=== PATIENT | male | born 1950 | race Caucasian/White ===

== ENCOUNTER 2018-05-08 05:25 | Inpatient (IN) ==
[2018-05-08] MEDS ORDERED: TRANEXAMIC ACID 1,000 MG/10 ML VIAL ONE (06:43)
[2018-05-08] MEDS ORDERED: BACITRACIN OINT 0.9 GM PACK TOP ONE (06:43)
[2018-05-08] MEDS ORDERED: ROPIVACAINE 0.5% 30 ML VIAL ONE (07:30)
[2018-05-08] MEDS ORDERED: LACTATED RINGERS 1,000 ML IV SCH (07:30)
[2018-05-08] MEDS ORDERED: MIDAZOLAM 2 MG/2 ML VIAL ONE ×2 (07:51→09:59)
[2018-05-08] MEDS ORDERED: VANCOMYCIN 1,000 MG VIAL ONE (07:54)
[2018-05-08] MEDS ORDERED: ceFAZolin 1,000 MG VIAL ONE (07:54)
[2018-05-08] MEDS ORDERED: MORPHINE 4 MG/1 ML VIAL IV PRN ×2 (09:45)
[2018-05-08] MEDS ORDERED: oxyCODONE IR 5 MG TABLET PO PRN ×2 (09:45)
[2018-05-08] MEDS ORDERED: MAGNESIUM HYDROXIDE SUSP 30 ML UDCUP PO PRN (09:45)
[2018-05-08] MEDS ORDERED: ZALEPLON 5 MG CAPSULE PO PRN (09:45)
[2018-05-08] MEDS ORDERED: ONDANSETRON 4 MG/2 ML VIAL IV PRN ×2 (09:45→10:15)
[2018-05-08] MEDS ORDERED: diphenhydrAMINE CAP 25 MG CAPSULE PO PRN (09:45)
[2018-05-08] MEDS ORDERED: fentaNYL 100 MCG/2 ML VIAL ONE (09:58)
[2018-05-08] MEDS ORDERED: PROPOFOL 200 MG/20 ML VIAL IV ONE (09:58)
[2018-05-08] MEDS ORDERED: BUPIVACAINE SPINAL 0.75% 2 ML AMP SPINAL ONE (09:58)
[2018-05-08] MEDS ORDERED: GLYCOPYRROLATE 0.4 MG/2 ML VIAL ONE (09:59)
[2018-05-08] MEDS ORDERED: PROPOFOL 500 MG/50 ML BOTTLE IV ONE (09:59)
[2018-05-08] MEDS ORDERED: PHENYLEPHRINE 1 MG/10 ML SYRINGE IV ONE (09:59)
[2018-05-08] MEDS ORDERED: SODIUM CHLORIDE 0.9% 100 ML IV ONE (09:59)
[2018-05-08] MEDS ORDERED: HYDROmorphone 2 MG/1 ML VIAL IV PRN (10:15)
[2018-05-08] MEDS: KETOROLAC 30 MG/1 ML VIAL IV SCH ×3 (10:22→22:12)
[2018-05-08] MEDS: LACTATED RINGERS 1,000 ML IV SCH (11:25)
[2018-05-08] MEDS: TRIAMTERENE/HCTZ 75-50 MG TABLET PO SCH (11:37)
[2018-05-08 11:49] LABS: Basophils # 0.1 10*3/uL (0.0-0.2); Basophils % 0.2 % (0.0-0.8); Eosinophils # 0.3 10*3/uL (0.0-0.87); Eosinophils % 1.2 % (0.00-10.9); Hemoglobin 15.3 GM/DL (14.0-18.0); Immature Granulocytes % 0.3 %; Immature Granulocytes Absolute 0.06 #; Lymphocytes # 16.1 10*3/uL (1.4-4.0); Lymphocytes % 74.9 % (21.2-54.2); Mean Corpuscular HGB Conc 33.3 GM/DL (32-36); Mean Corpuscular Hemoglobin 30 PG (27-34); Mean Corpuscular Volume 91.1 FL (87-102); Mean Platelet Volume 11.1 FL (9.6-12.0); Monocytes # 0.7 10*3/uL (0.11-0.8); Monocytes % 3.2 % (1.7-12.7); Neutrophils # 4.4 10*3/uL (1.4-7.4); Neutrophils % 20.2 % (38.7-73.9); Platelet Count 212 T/CUMM (130-400); Red Blood Count 5.05 MC/CUMM (3.8-5.5); Red Cell Distribution Width 14.2 % (9.3-17.3); White Blood Count 21.6 T/CUMM (4-12)
[2018-05-08 12:10] LABS: Calcium 8.3 MG/DL (8.5-10.1); Osmolality,Calculated 274.8 MOS/KG (273-304); Potassium 3.7 MMOL/L (3.5-5.1)
[2018-05-08 12:18] LABS: Atypical Lymphocytes Few; Band Neutrophils 1 % (0-10); Eosinophils 3 % (0-10); Lymphocytes 67 % (20-55); Segmented Neutrophils 26 % (50-85); Total Cells Counted 100
[2018-05-08 12:19] LABS: Microcytosis 1+; Platelet Estimate Normal; Smudge Cells Few
[2018-05-08] MEDS: ceFAZolin 1,000 MG in SYRINGE 1 EACH IV SCH ×2 (13:58→22:08)
[2018-05-08] MEDS: ACETAMINOPHEN 500 MG TABLET PO SCH ×2 (15:06→22:07)
[2018-05-08] MEDS: DOCUSATE SODIUM 100 MG CAPSULE PO SCH (22:08)
[2018-05-09] MEDS: LACTATED RINGERS 1,000 ML IV SCH ×2 (03:31→03:32)
[2018-05-09] MEDS: KETOROLAC 30 MG/1 ML VIAL IV SCH (04:58)
[2018-05-09] MEDS: ACETAMINOPHEN 500 MG TABLET PO SCH ×2 (04:58→09:48)
[2018-05-09] MEDS: FONDAPARINUX 2.5 MG/0.5 ML SYRINGE SUBCUT SCH (05:15)
[2018-05-09 06:07] LABS: Basophils # 0.1 10*3/uL (0.0-0.2); Basophils % 0.2 % (0.0-0.8); Eosinophils # 0.5 10*3/uL (0.0-0.87); Eosinophils % 1.8 % (0.00-10.9); Hematocrit 40.5 VOL% (42.0-52.0); Hemoglobin 13.4 GM/DL (14.0-18.0); Immature Granulocytes % 0.2 %; Immature Granulocytes Absolute 0.05 #; Lymphocytes # 16.5 10*3/uL (1.4-4.0); Mean Corpuscular HGB Conc 33.1 GM/DL (32-36); Mean Corpuscular Hemoglobin 30 PG (27-34); Mean Corpuscular Volume 90.6 FL (87-102); Mean Platelet Volume 11.2 FL (9.6-12.0); Monocytes # 1.1 10*3/uL (0.11-0.8); Monocytes % 4.4 % (1.7-12.7); Neutrophils # 6.5 10*3/uL (1.4-7.4); Neutrophils % 26.4 % (38.7-73.9); Platelet Count 209 T/CUMM (130-400); Red Blood Count 4.47 MC/CUMM (3.8-5.5); Red Cell Distribution Width 14.2 % (9.3-17.3); White Blood Count 24.7 T/CUMM (4-12)
[2018-05-09 06:17] LABS: Calcium 8.1 MG/DL (8.5-10.1); Osmolality,Calculated 277.7 MOS/KG (273-304); Potassium 3.2 MMOL/L (3.5-5.1)
[2018-05-09 06:37] LABS: Atypical Lymphocytes Few; Band Neutrophils 1 % (0-10); Eosinophils 4 % (0-10); Lymphocytes 41 % (20-55); Segmented Neutrophils 52 % (50-85); Smudge Cells Few; Total Cells Counted 100
[2018-05-09 06:38] LABS: Hypochromasia Slight; Microcytosis 1+; Platelet Estimate Normal
[2018-05-09] MEDS: DOCUSATE SODIUM 100 MG CAPSULE PO SCH ×2 (09:48→21:31)
[2018-05-09] MEDS: TRIAMTERENE/HCTZ 75-50 MG TABLET PO SCH (10:13)
[2018-05-09] MEDS: CELECOXIB 200 MG CAPSULE PO SCH (16:11)
[2018-05-10 05:14] LABS: Basophils # 0.1 10*3/uL (0.0-0.2); Basophils % 0.3 % (0.0-0.8); Eosinophils # 0.6 10*3/uL (0.0-0.87); Eosinophils % 2.3 % (0.00-10.9); Hematocrit 40.9 VOL% (42.0-52.0); Hemoglobin 13.3 GM/DL (14.0-18.0); Immature Granulocytes % 0.5 %; Immature Granulocytes Absolute 0.13 #; Lymphocytes # 16.8 10*3/uL (1.4-4.0); Lymphocytes % 61.2 % (21.2-54.2); Mean Corpuscular HGB Conc 32.5 GM/DL (32-36); Mean Corpuscular Hemoglobin 30 PG (27-34); Mean Corpuscular Volume 91.7 FL (87-102); Mean Platelet Volume 11.3 FL (9.6-12.0); Monocytes # 1.3 10*3/uL (0.11-0.8); Monocytes % 4.5 % (1.7-12.7); Neutrophils # 8.6 10*3/uL (1.4-7.4); Neutrophils % 31.2 % (38.7-73.9); Platelet Count 226 T/CUMM (130-400); Red Blood Count 4.46 MC/CUMM (3.8-5.5); Red Cell Distribution Width 14.1 % (9.3-17.3); White Blood Count 27.5 T/CUMM (4-12)
[2018-05-10 05:48] LABS: Eosinophils 4 % (0-10); Lymphocytes 41 % (20-55); Platelet Estimate Normal; Segmented Neutrophils 51 % (50-85); Smudge Cells Few; Total Cells Counted 100
[2018-05-10] MEDS: FONDAPARINUX 2.5 MG/0.5 ML SYRINGE SUBCUT SCH (06:54)
[2018-05-10] MEDS: CELECOXIB 200 MG CAPSULE PO SCH (09:27)
[2018-05-10] MEDS: TRIAMTERENE/HCTZ 75-50 MG TABLET PO SCH (09:27)
[2018-05-10] MEDS: DOCUSATE SODIUM 100 MG CAPSULE PO SCH (09:27)
[2018-05-10 11:58] VITALS: BP 163/100
== END 2018-05-10 14:36 | disposition home health service (06) | DRG 470 ==
LOC: N.OR 05:25 → N.SDSINP 06:16 → N.3E 10:48
PROVIDERS: ADMIT Orthopaedic Surgery; ATTEND Orthopaedic Surgery